=== PATIENT | male | born 2005 | race Hispanic/Latino ===

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

== ENCOUNTER 2024-05-04 02:36 | Emergency (ER) | payer SELFPAY ==
[2024-05-04] MEDS ORDERED: Ketorolac Tromethamine 30 MG (1 mL) VIAL ONE (03:02)
== END 2024-05-04 03:44 | disposition home or self-care (01) ==
LOC: ERS 02:36
DX: R07.89 Other chest pain (principal); Z75.8 Other problems related to medical facilities and other health care
CPT/HCPCS: 71045; 93005; 96374; J1885